=== PATIENT | male | born 1980 | race Caucasian/White ===

== ENCOUNTER 2016-11-23 00:12 | Inpatient (IN) | payer OTHER ==
--- NOTE | ~2016-11-23 | CN ---
Consultation Report [facility] [address] [place]. [address] NAME: BEN ROGERS : 78 STATUS : ADM IN PAT#: [id number] AGE: 35 ADM/REG DATE : 11/23/16 MR#: [id number] REPORT SERV DATE: 11/23/16 DICTATED BY: ANTONY LOUIE DATE: 11/23/16 REPORT STATUS : Draft TRANSCRIBED BY: MODL DATE: 11/23/16 PSYCHIATRIC CONSULTATION DATE OF CONSULTATION: 11/23/2016 I reviewed this patient's medical record. HISTORY OF PRESENT ILLNESS: The patient developed aphasia yesterday morning. He was admitted to our hospital with a diagnosis of possible CVA. I was consulted to address his history of schizoaffective disorder. PAST PSYCHIATRIC HISTORY: He was diagnosed with schizophrenia or schizoaffective disorder as a teenager or perhaps earlier. He had previous psychiatric admissions to psychiatric facilities in [place]. He was on psychotropic medications for many years. He has been off these medications for the past seven years or so. He reports that he still hears voices, but he has learned to live with them. PAST MEDICAL HISTORY: He had an MT in 2008. Stents were placed in his coronary arteries on two separate occasions. He had a stroke with left hemiparesis last year when he was treated at [facility]. At that time, he was told that the stroke was caused by emboli from his heart. SOCIAL HISTORY: He is on disability because of his psychiatric history. He lives with a girlfriend in [place]. MENTAL STATUS: He was calm and cooperative. His mood was mildly anxious. His affect was appropriate. His speech was slow, hesitant, and somewhat fragmented. In spite of that, he was able to express himself in a logical manner. He had no delusions. He reported occasional hallucinations. He was oriented to time, place, and person. DIAGNOSES: Schizoaffective disorder, by history. Status post cerebrovascular accident, with dysphasia. RECOMMENDATIONS: There is no need for further psychiatric intervention at this time. I will sign off. HERI/BRIDEGR Antony Louie M.D. / [id number] Consultation Report [place] [id number] [place]. [address] NAME: BEN ROGERS : [birth year] STATUS : ADM IN PAT#: [id number] AGE: 35 ADM/REG DATE : 11/23/16 MR#: [id number] REPORT SERV DATE: 11/23/16 DICTATED BY: ANTONY LOUIE DATE: 11/23/16 REPORT STATUS : Draft TRANSCRIBED BY: MODL DATE: 11/23/16 CC: Rosendo Briscoe MD
--- NOTE | ~2016-11-23 | CN ---
Consultation Report [facility] [address] [place]. [address] NAME: BEN ROGERS : 78 STATUS : ADM IN [facility]#: [id number] AGE: 35 ADM/REG DATE : 11/23/16 MR#: [id number] REPORT SERV DATE: 11/23/16 DICTATED BY: LOLI BARRETO DATE: 11/23/16 REPORT STATUS : Draft TRANSCRIBED BY: MODL DATE: 11/23/16 NEUROLOGY CONSULTATION DATE OF CONSULTATION: 11/23/2016 REASON FOR CONSULTATION: Stroke. PRIMARY CARE PHYSICIAN: Dr. Wagner. HOSPITALIST: Dr. Rosendo Briscoe. HISTORY OF PRESENT ILLNESS: The patient is a 35-year-old male, who has a history of stroke and came into the emergency department from [facility] with global aphasia. The patient was not able to speak through most of the examination and communication was done through writing and gesturing. According to the patient, he woke up yesterday morning, unable to speak. He denied any other deficits such as visual changes, numbness, or weakness in the extremities, ataxia, or confusion. He only had difficulty with speech. He could understand written and verbal communication. He just could not get any words out. The patient does have a history of stroke and has had a stroke in the past. Upon further history collection, the patient did mention that he has schizoaffective disorder. He has been under the care of a psychologist Dr. Chapa, who had prescribed medications. The patient does not recall the name of the medications, but mentioned that he quit taking them. He denied being under any stress at this time. He lives at home with a girlfriend, who is unaware of his medications or disorder. The patient also mentions that he uses recreational drugs. He denies the use of crack cocaine or any other stimulant. He does smoke pot on occasion. He also smokes cigarettes and occasionally will have an alcoholic beverage. PAST MEDICAL HISTORY: Stroke, hypertension, hyperlipidemia, cigarette abuse, obesity, schizoaffective disorder. PAST SURGICAL HISTORY: None. HOME MEDICATIONS: Aspirin 81 mg a day, fish oil 1000 mg a day, and simvastatin strength unknown. ALLERGIES: NONE. SOCIAL HISTORY: The patient is single. He has no kids. He lives with his girlfriend. He does not work. He is on disability for his schizoaffective disorder. He smokes cigarettes occasionally, will smoke marijuana, and have an occasional alcoholic drink. Consultation Report [address] [place]. [address] NAME: BEN ROGERS : 79 STATUS : ADM IN PAT#: [id number] AGE: 35 ADM/REG DATE : 11/23/16 MR#: [id number] REPORT SERV DATE: 11/23/16 DICTATED BY: LOLI BARRETO DATE: 11/23/16 REPORT STATUS : Draft TRANSCRIBED BY: BRIDGER DATE: 11/23/16 FAMILY HISTORY: His mother is alive and healthy. His father has heart disease. He has one sister and one brother. REVIEW OF SYSTEMS: Please refer to HPI. PHYSICAL EXAMINATION: GENERAL: The patient is a 35-year-old male, who stands 6 feet tall and weighs 245 pounds. VITAL SIGNS: He is afebrile. Heart rate 54, respiratory rate 18, O2 saturations on room air 96%, blood pressure 129/86. NEURO: The patient is oriented x4. He is alert. He can communicate appropriately with gesturing and writing. [place] through the exam, the patient started to speak while writing. Speech is slightly dysarthric, but understandable. Pupils are 4 mm. PERRLA. Cranial nerves 2 through 12 are intact. [id number], no ataxia. Hyua-io-clvx, no ataxia. No pronator drift. Upper extremity strength is 5/5 bilaterally. No reported sensory deficits. DTRs are 1+ bilaterally. Lower extremities, strength is 5/5. DTRs 2+ bilaterally. Downgoing toes. No reported sensory deficits. The patient can get in and out of the bed without much difficulty. NECK: No carotid bruits or JVD. No thyromegaly. CHEST: Lung sounds are clear. CARDIAC: Regular rate and rhythm. LABORATORY DATA: CBC shows a mild elevation in white count at 11.3. BMP is normal. Cholesterol values are relatively normal. CT scan of the brain done at [facility] showed mild low attenuation (subacute in the left frontal lobe and right lobe encephalomalacia). NIH stroke scale is 1 for dysarthria. ASSESSMENT/PLAN: 1. Possible acute stroke, however, the patient did regain his speech usp through the exam, although, he was mildly dysarthric. The patient will continue on aspirin and will be placed on Lipitor 40 mg at bedtime, MRI of the brain, and MRA of the head and neck are pending. He will undergo an echocardiogram with bubble study. Risk factor reduction was discussed with the patient including avoidance of drug abuse. Additional lab work will be checked. 2. Schizoaffective disorder. Dr. Pedersen in Psychiatry will be consulted to see the patient today and we will progress from there. Thank you again for including us in consultation. We will follow with you. RANJEET/BRIDGER Loli Barreto DNP, [facility]- Consultation Report [address] [place]. [address] NAME: BEN ROGERS : 78 STATUS : ADM IN PAT#: [id number] AGE: 35 ADM/REG DATE : 11/23/16 MR#: [id number] REPORT SERV DATE: 11/23/16 DICTATED BY: LOLI BARRETO DATE: 11/23/16 REPORT STATUS : Draft TRANSCRIBED BY: BRIDGER DATE: 11/23/16 / [id number] CC: Rosendo Briscoe MD
--- NOTE | ~2016-11-23 | HP ---
History And Physical [place] [address] [facility] [place]. [address] NAME: BEN ROGERS : [birth year] STATUS : ADM IN PAT#: [id number] AGE: 35 ADM/REG DATE : 11/23/16 MR#: [id number] REPORT SERV DATE: 11/23/16 DICTATED BY: ARACELY BAÑUELOS DATE: 11/23/16 REPORT STATUS : Draft TRANSCRIBED BY: MODL DATE: 11/23/16 DATE OF ADMISSION: 11/23/2016 CHIEF COMPLAINT: A 35-year-old male having difficulty with speech. HISTORY OF PRESENTING ILLNESS: The patient's history was obtained during interview with the patient, although limited by patient's persistent lack of cooperation. I attempted to contact his girlfriend, Heidi Pérez, several times, but both phone numbers would not answer and there was no option to leave a message. I was able to review limited records obtained from [facility]. It was reported that the patient woke up at 9 a.m. on the morning leading up to admission with inability to talk. There was no initial reported hemiparesis. No double vision. No confusion. No gait disturbance, but at one point when I asked the patient if one part of his body is weak, he begins waving the left arm and his left leg actively, and also when I asked the patient if he feels confused, he nods his head. He is denying any pain at this time. He states he has no headache. No chest pain. No sore throat. No back pain. No abdominal pain. No leg pain. No nausea or vomiting. No diarrhea. No change in urine habits. Many times through my history of the patient, I asked him to write down responses to questions or to write a narrative of what happens and how he feels, but at least during my evaluation, he consistently refuses to participate. It was clear that earlier in the evening and on the day leading up to this admission, he had been writing fluently in complete sentences and with good penmanship, as I am able to review several pages of written text in his notepad, but during my history, he would just throw the pen down and seemed irritable and uncooperative, and it seemed that this was more an issue of not wanting to write anything rather than an inability to write down a history. REVIEW OF SYSTEMS: I was able to go through a 14-point review of systems with "yes" or "no" questions, and although at times I would question the validity of the review of systems because of the patient's obviously irritability, he otherwise was communicating that a 14-point review of systems was negative on all accounts. PAST MEDICAL HISTORY: 1. Stroke. 2. Coronary artery disease, status post stent placement. 3. Hypertension. 4. Elevated cholesterol. PAST SURGICAL HISTORY: The patient denies any past surgeries, but would still question whether he has had a surgery in the past as he seems mostly cantankerous when I ask him questions about things such as a surgical history. History And Physical [address] [address] NAME: BEN ROGERS : 78 STATUS : ADM IN [facility]#: [id number] AGE: 35 ADM/REG DATE : 11/23/16 MR#: [id number] REPORT SERV DATE: 11/23/16 DICTATED BY: ARACELY BAÑUELOS DATE: 11/23/16 REPORT STATUS : Draft TRANSCRIBED BY: BRIDGER DATE: 11/23/16 ALLERGIES: NO KNOWN DRUG ALLERGIES. SOCIAL HISTORY: The patient does smoke. He does not drink alcohol. He lives with his girlfriend in [place], [place]. It appears he does not have children as he is shaking his head irritably when I ask him about having children. FAMILY HISTORY: The patient refuses to write down a response on a pad of paper about medical problems in his family and does not respond at all when I ask him if there are strokes or heart disease or diabetes in his family history. CURRENT MEDICATIONS: Include aspirin 81 mg daily, omega-3 fatty acids, and simvastatin. PHYSICAL EXAMINATION: VITAL SIGNS: Temperature 98.1, pulse 56, blood pressure 136/78, respiratory rate 18, and O2 saturation 98% on room air. GENERAL: The patient, mostly early on, comes across as just irritable and cantankerous and uncooperative. He does not appear in any distress. He does not appear specifically bothered by his apparent neurological deficit, but just seems as if he does not want to be talking to me or communicating with me, more as an intent than a disability. He does not appear in any distress at all. NEUROLOGICAL: He does not cooperate with neurological testing, but I was able to see him move all four extremities without apparent disability. He does not cooperate fully with cranial nerve testing, although I was able to get him to track his eyes to both sides of the bed, also above his bed and below his bed towards his feet, so at least it seems that his oculomotor function is intact. HEENT: Pupils equal, round, and reactive to light. No conjunctival pallor. No scleral icterus. Nares are patent. Oropharynx is clear of obstruction, but he only opens his mouth a very, very small amount. NECK: Trachea midline. No thyromegaly. LYMPH: No cervical lymphadenopathy. No supraclavicular lymphadenopathy. RESPIRATORY: Clear to auscultation at bases. No wheezes, no rales, no rhonchi. No labored respiratory effort. CARDIOVASCULAR: Bradycardic. Regular rhythm. No murmurs, rubs, or gallops. No extremity edema is appreciated. ABDOMEN: Soft, nontender, nondistended. Active bowel tones. No hepatosplenomegaly. DERMATOLOGICAL: Warm and dry extremities. No pallor. No cyanosis. LABORATORY DATA: White blood cell count 11.8, hemoglobin 15, hematocrit 46, and platelets 299. Sodium 138, potassium 4.0, chloride 108, bicarb 22, BUN 7, creatinine 0.8, glucose 91. INR 1.0. Total bilirubin 1.9, but otherwise liver enzymes within normal limits. STUDIES: 1. CT scan of the brain without contrast from outlying facility showed no acute intracranial process. There was suggested left mastoiditis. 2. EKG by my own evaluation shows sinus bradycardia. 3. Chest x-ray by my own evaluation shows no acute cardiopulmonary process. History And Physical [address] [address] NAME: BEN ROGERS : 78 STATUS : ADM IN PAT#: [id number] AGE: 35 ADM/REG DATE : 11/23/16 MR#: [id number] REPORT SERV DATE: 11/23/16 DICTATED BY: ARACELY BAÑUELOS DATE: 11/23/16 REPORT STATUS : Draft TRANSCRIBED BY: MODArmando DATE: 11/23/16 ASSESSMENT AND PLAN: 1. Possible stroke with aphasia. This is a suspected diagnosis, although my neurological evaluation of the patient seems extremely limited by patient's uncooperative demeanor. It does not seem that he is irritated by his disability, but mostly what at least appears to be a cantankerous mood and an intent to not participate with my history or exam. He did pass a swallow study with no difficulty at the bedside. He is still on aspirin. We would like to check an MRI of the brain with diffusion-weighted, check an MRA of the carotid arteries, check an echocardiogram, check telemetry, check fasting lipid panel. Continue statin. 2. Coronary artery disease with history of stent placement. 3. Mastoiditis. We will follow the CT scan finding with an MRI of the brain and head. Once again, I note that I tried to contact the patient's girlfriend on multiple occasions, Heidi Velacassy, the only contact that one is available at #[phone] and [phone], but there was no answer and no option to leave messages on the phone. KLARISSA/BRIDGER Aracely Bañuelos M.D. / [id number] CC: Rosendo Briscoe MD
--- NOTE | ~2016-11-23 | DS ---
Discharge Summary [facility] [address] [place]. [address] NAME: BEN ROGERS : 78 STATUS : ADM IN [facility]#: [id number] AGE: 35 ADM/REG DATE : 11/23/16 MR#: [id number] REPORT SERV DATE: 11/24/16 DICTATED BY: Nallely QUEZADA DATE: 11/24/16 REPORT STATUS : Draft TRANSCRIBED BY: MODL DATE: 11/24/16 ADMISSION DATE: 11/23/2016 DISCHARGE DATE: 11/24/2016 DIAGNOSES AT TIME OF DISCHARGE: 1. Left frontal cerebrovascular accident with expressive aphasia. 2. Schizoaffective disorder. 3. Hypertension. 4. Hyperlipidemia. 5. Tobacco abuse. CONSULTATIONS: Psychiatry and Neurology. PROCEDURES: Echocardiogram, MRI of the brain, and MRA of the brain and neck. BRIEF HOSPITAL COURSE: 35-year-old male patient presented with aphasia of uncertain duration. Imaging confirmed left frontal CVA. Seen and evaluated by Neurology. Also carries a diagnosis of schizoaffective disorder, was seen and evaluated by Psychiatry. The patient was started on full strength aspirin and Lipitor 80 mg daily. The patient had a normal echocardiogram. His carotids were negative on the MRA. The following day, he was evaluated by Speech Therapy. His swallowing was normal. Their recommendations were for outpatient physical therapy and outpatient speech therapy for his persistent aphasia. The patient was felt stable to be discharged home on his current medications. Prescriptions are provided at the time of discharge. Psychiatry recommended no psychiatric intervention at this time, and recommended outpatient followup. The patient will be discharged home with his family in stable condition on a combination of full strength aspirin and Lipitor. We are strongly recommend that he discontinue smoking immediately. DICTATED BY: Nallely Quezada M.D. [facility]/BRIDGER Nallely Quezada M.D. / [id number] CC: Rosendo Briscoe MD
[2016-11-23] MEDS ORDERED: FISH-EPA1000 MG PO (01:23)
[2016-11-23] MEDS ORDERED: ASAB PO (01:24)
[2016-11-23] MEDS ORDERED: ZOCOR20 PO (01:25)
[2016-11-23 01:29] LABS: BASOPHILS 0.1 %; BASOPHILS ABSOLUTE 0.01 10/3/uL (0.0-0.16); EOSINOPHILS 0.9 %; HEMATOCRIT 44.3 % (40.0-51.0); HEMOGLOBIN 15.4 g/dL (13.6-17.8); IMMATURE GRANULOCYTES 0.4 %; IMMATURE GRANULOCYTES ABSOLUTE 0.04 10/3/uL (0.0-0.11); LYMPHOCYTES 38.8 %; LYMPHOCYTES ABSOLUTE 4.37 10/3/uL (0.67-4.30); MANUAL DIFF NO %; MEAN CORPUS HGB CONC 34.8 g/dL (32.0-36.0); MEAN CORPUSCULAR HEMOGLOB 30.1 pg (26.0-34.0); MEAN CORPUSCULAR VOLUME 86.7 fL (80-100); MEAN PLATELET VOLUME 9.8 fL (9.2-13.0); MONOCYTES 6.7 %; MONOCYTES ABSOLUTE 0.76 10/3/uL (0.21-1.20); NEUTROPHILS 53.1 %; NEUTROPHILS ABSOLUTE 5.99 10/3/uL (2.02-8.40); PLATELET COUNT 238 10/3/uL (150-400); RBC DISTRIBUTION WIDTH 13.2 % (12.0-16.0); RED CELL COUNT 5.11 10/6/uL (4.7-6.1); WHITE BLOOD CELLS 11.3 10/3/uL (4.5-10.5)
[2016-11-23 01:36] LABS: INTERNATIONAL NORMAL RATI 1.1 UNITS (-); PARTIAL THROMBO TIME 26.4 SEC (22.5-37.2); PROTIME (NOT ORD) 13.7 SEC (12.0-14.5)
[2016-11-23 01:47] LABS: A/G RATIO 1.1 (0.7-1.9); ALBUMIN 3.7 G/DL (3.5-5.0); ALKALINE PHOSPHATASE 79 U/L (45-117); BUN (BLOOD UREA NITROGEN) 7 MG/DL (6-23); CALCIUM, SERUM 8.9 MG/DL (8.5-10.4); CHLORIDE, SERUM 109 MMOL/L (96-112); CHOL/HDL RATIO(NOT ORDER) 3.9 (0-5); CHOLESTEROL 117 MG/DL (< 200); CO2 (CARBON DIOXIDE) 23 MMOL/L (24-34); CREATININE 0.77 MG/DL (0.70-1.30); GFR AFRICAN AMERICAN 135 ML/MIN (>=60); GFR NON AFRICAN AMERICAN 117 ML/MIN (>=60); GLOBULIN 3.4 G/DL (2.5-4.1); GLUCOSE, SERUM 79 MG/DL (60-99); HDL CHOLESTEROL 30 MG/DL (> 39); LDL CHOLESTEROL 53 MG/DL (< 130); NON-HDL CHOLESTEROL 87 MG/DL (< 160); POTASSIUM, SERUM 3.8 MMOL/L (3.5-5.3); SGOT(AST) 27 U/L (5-40); SGPT(ALT) 45 U/L (5-65); SODIUM, SERUM 139 MMOL/L (135-148); TOTAL BILIRUBIN 1.9 MG/DL (0-1.2); TOTAL PROTEIN 7.1 G/DL (6.0-8.5); TRIGLYCERIDE 170 MG/DL (< 150)
[2016-11-23 10:44] LABS: BASOPHILS 0.1 %; BASOPHILS ABSOLUTE 0.01 10/3/uL (0.0-0.16); EOSINOPHILS 1.2 %; EOSINOPHILS ABSOLUTE 0.11 10/3/uL (0.0-0.53); HEMATOCRIT 44.8 % (40.0-51.0); HEMOGLOBIN 15.3 g/dL (13.6-17.8); IMMATURE GRANULOCYTES 0.5 %; IMMATURE GRANULOCYTES ABSOLUTE 0.05 10/3/uL (0.0-0.11); LYMPHOCYTES 30.3 %; LYMPHOCYTES ABSOLUTE 2.87 10/3/uL (0.67-4.30); MEAN CORPUS HGB CONC 34.2 g/dL (32.0-36.0); MEAN CORPUSCULAR HEMOGLOB 29.5 pg (26.0-34.0); MEAN CORPUSCULAR VOLUME 86.3 fL (80-100); MONOCYTES ABSOLUTE 0.85 10/3/uL (0.21-1.20); NEUTROPHILS 58.9 %; NEUTROPHILS ABSOLUTE 5.59 10/3/uL (2.02-8.40); PLATELET COUNT 247 10/3/uL (150-400); RBC DISTRIBUTION WIDTH 13.2 % (12.0-16.0); RED CELL COUNT 5.19 10/6/uL (4.7-6.1); WHITE BLOOD CELLS 9.5 10/3/uL (4.5-10.5)
[2016-11-23 10:48] LABS: MANUAL DIFF NO %
[2016-11-23 10:59] LABS: INTERNATIONAL NORMAL RATI 1.1 UNITS (-); PARTIAL THROMBO TIME 26.9 SEC (22.5-37.2); PROTIME (NOT ORD) 13.7 SEC (12.0-14.5)
[2016-11-23 11:04] LABS: A/G RATIO 1.2 (0.7-1.9); ALBUMIN 3.6 G/DL (3.5-5.0); ALKALINE PHOSPHATASE 75 U/L (45-117); BUN (BLOOD UREA NITROGEN) 8 MG/DL (6-23); CALCIUM, SERUM 8.9 MG/DL (8.5-10.4); CHLORIDE, SERUM 108 MMOL/L (96-112); CO2 (CARBON DIOXIDE) 24 MMOL/L (24-34); CREATININE 0.85 MG/DL (0.70-1.30); GFR AFRICAN AMERICAN 130 ML/MIN (>=60); GFR NON AFRICAN AMERICAN 112 ML/MIN (>=60); GLOBULIN 3.1 G/DL (2.5-4.1); GLUCOSE, SERUM 89 MG/DL (60-99); POTASSIUM, SERUM 4.1 MMOL/L (3.5-5.3); SGOT(AST) 22 U/L (5-40); SGPT(ALT) 44 U/L (5-65); SODIUM, SERUM 140 MMOL/L (135-148); TOTAL BILIRUBIN 2.3 MG/DL (0-1.2); TOTAL PROTEIN 6.7 G/DL (6.0-8.5); TROPONIN I 0.03 NG/ML (<0.05)
[2016-11-23 11:27] LABS: SED RATE 7 MM/HR (0-15)
[2016-11-23 12:34] LABS: ALBUMIN 3.4 G/DL (3.5-5.0); ALKALINE PHOSPHATASE 73 U/L (45-117); DIRECT BILIRUBIN 0.3 MG/DL (0.0-0.4); FREE T4 1.18 NG/DL (0.76-1.46); INDIRECT BILIRUBIN(NOT ORDER) 1.6 MG/DL (0.1-0.9); SGOT(AST) 20 U/L (5-40); SGPT(ALT) 44 U/L (5-65); TOTAL BILIRUBIN 1.9 MG/DL (0-1.2); TOTAL PROTEIN 6.7 G/DL (6.0-8.5)
[2016-11-23 12:35] LABS: ACETAMINOPHEN LEVEL (TYLENOL) < 2.0 MCG/ML (10.0-20.0); ALCOHOL < 10 MG/DL (0); FOLATE 12.1 NG/ML (>5.2); SALICYLATE < 1.7 MG/DL (-)
[2016-11-23 13:50] LABS: C-REACTIVE PROTEIN 3.8 MG/L (<8.0)
[2016-11-24 05:30] LABS: BASOPHILS 0.2 %; BASOPHILS ABSOLUTE 0.02 10/3/uL (0.0-0.16); EOSINOPHILS 1.2 %; EOSINOPHILS ABSOLUTE 0.12 10/3/uL (0.0-0.53); HEMATOCRIT 43.6 % (40.0-51.0); HEMOGLOBIN 15.2 g/dL (13.6-17.8); IMMATURE GRANULOCYTES 0.5 %; IMMATURE GRANULOCYTES ABSOLUTE 0.05 10/3/uL (0.0-0.11); LYMPHOCYTES 39.7 %; LYMPHOCYTES ABSOLUTE 4.04 10/3/uL (0.67-4.30); MEAN CORPUS HGB CONC 34.9 g/dL (32.0-36.0); MEAN CORPUSCULAR VOLUME 86.2 fL (80-100); MEAN PLATELET VOLUME 10.3 fL (9.2-13.0); MONOCYTES 8.5 %; MONOCYTES ABSOLUTE 0.86 10/3/uL (0.21-1.20); NEUTROPHILS 49.9 %; NEUTROPHILS ABSOLUTE 5.08 10/3/uL (2.02-8.40); PARTIAL THROMBO TIME 26.6 SEC (22.5-37.2); PLATELET COUNT 256 10/3/uL (150-400); PROTIME (NOT ORD) 13.3 SEC (12.0-14.5); RED CELL COUNT 5.06 10/6/uL (4.7-6.1); WHITE BLOOD CELLS 10.2 10/3/uL (4.5-10.5)
[2016-11-24 05:32] LABS: BUN (BLOOD UREA NITROGEN) 11 MG/DL (6-23); CALCIUM, SERUM 8.4 MG/DL (8.5-10.4); CHLORIDE, SERUM 110 MMOL/L (96-112); CHOL/HDL RATIO(NOT ORDER) 4.6 (0-5); CHOLESTEROL 124 MG/DL (< 200); CO2 (CARBON DIOXIDE) 22 MMOL/L (24-34); CPK 76 U/L (0-200); CREATININE 0.84 MG/DL (0.70-1.30); GFR AFRICAN AMERICAN 131 ML/MIN (>=60); GFR NON AFRICAN AMERICAN 113 ML/MIN (>=60); GLUCOSE, SERUM 87 MG/DL (60-99); HDL CHOLESTEROL 27 MG/DL (> 39); LDL CHOLESTEROL 62 MG/DL (< 130); NON-HDL CHOLESTEROL 97 MG/DL (< 160); POTASSIUM, SERUM 4.1 MMOL/L (3.5-5.3); SODIUM, SERUM 139 MMOL/L (135-148); TRIGLYCERIDE 176 MG/DL (< 150); TROPONIN I 0.03 NG/ML (<0.05)
[2016-11-24 05:33] LABS: CK-MB < 0.5 NG/ML
[2016-11-24 05:35] LABS: MANUAL DIFF NO %
[2016-11-24 12:12] LABS: CPK 86 U/L (0-200); TROPONIN I 0.03 NG/ML (<0.05)
[2016-11-24 12:20] LABS: CK-MB < 0.5 NG/ML
[2016-11-24] MEDS ORDERED: LIPITOR80 MG PO (12:23)
[2016-11-24] MEDS ORDERED: ASA5GR PO (12:23)
== END 2016-11-24 13:22 | disposition home or self-care (01) | DRG 65 ==
LOC: 2SO 00:12
PROVIDERS: Hospitalist; Nurse Practitioner; Student in an Organized Health Care Education/Training Program
DX: I63.9 Cerebral infarction, unspecified (principal); I69.354 Hemiplegia and hemiparesis following cerebral infarction affecting left non-dominant side; I10 Essential (primary) hypertension; H70.90 Unspecified mastoiditis, unspecified ear; I25.10 Atherosclerotic heart disease of native coronary artery without angina pectoris; E78.00 Pure hypercholesterolemia, unspecified; F17.210 Nicotine dependence, cigarettes, uncomplicated; E66.9 Obesity, unspecified; F25.9 Schizoaffective disorder, unspecified; R00.1 Bradycardia, unspecified; I69.320 Aphasia following cerebral infarction; Z87.442 Personal history of urinary calculi; Z82.49 Family history of ischemic heart disease and other diseases of the circulatory system; Z95.5 Presence of coronary angioplasty implant and graft
CPT/HCPCS: 70544; 70547; 70551; 71010; 80048; 80053; 80061; 80076; 80307; 82140; 82550; 82553; 82607; 82746; 83036; 83735; 83880; 84439; 84443; 84484; 85025; 85610; 85652; 85730; 86140; 92523-GN; 92610-GN; 93005; 93306; 97161-GP; 97166-GO; A9270-GY; G8978-CJ-GP; G8979-CJ-GP; G8980-CJ-GP; G8987-CH-GO; G8988-CH-GO; G8996-CI-GN; G8997-CI-GN; G8998-CI-GN; G9162-CK-GN; G9163-CK-GN; G9164-CK-GN